=== PATIENT | female | born 1955 | race American Indian/Alaskan Native ===

== ENCOUNTER 2021-12-20 07:46 | Emergency (ER) | payer BC, OTHER ==
[2021-12-20 08:06] VITALS: BP 132/80; PULSE 75
[2021-12-20] MEDS ORDERED: Acetaminophen/oxyCODONE 325-5 MG Tab PO ONE (08:10)
== END 2021-12-20 10:07 | disposition home or self-care (01) ==
LOC: DL.ED 07:46
DX: S42.354A Nondisplaced comminuted fracture of shaft of humerus, right arm, initial encounter for closed fracture (principal); Z88.8 Allergy status to other drugs, medicaments and biological substances; Z79.899 Other long term (current) drug therapy; W10.2XXA Fall (on)(from) incline, initial encounter
CPT/HCPCS: 73020-RT; 73060-RT; 99283; A9270-GY

== ENCOUNTER 2022-05-11 08:51 | Day surgery (SDC) | payer BC, OTHER ==
[2022-05-11] MEDS ORDERED: Sodium Chloride 0.9% 10 ML Syringe IV ONE (08:52)
[2022-05-11] MEDS ORDERED: Dexamethasone 4 MG/ML SDV IV ONE (08:52)
[2022-05-11] MEDS ORDERED: Midazolam 1 MG/ML 2 ML SDV IV ONE (08:52)
[2022-05-11] MEDS ORDERED: Sodium Chloride 0.9% 10 ML Syringe FLUSH PRN (09:00)
[2022-05-11] MEDS ORDERED: Moxifloxacin 0.5% Ophth Soln 3 ML Bottle EYELF ONE (09:00)
[2022-05-11] MEDS ORDERED: Tropicamide 1% Ophth Soln 15 ML Bottle EYELF ONE (09:00)
[2022-05-11] MEDS ORDERED: Proparacaine 0.5% Ophth Soln 15 ML Bottle EYELF ONE (09:00)
[2022-05-11] MEDS ORDERED: Acetaminophen/Codeine 300-30 MG Tab PO PRN (09:00)
[2022-05-11] MEDS ORDERED: Povidone-Iodine 5% Sterile Ophth Soln 30 ML Bottle EYELF ONE ×2 (09:00→09:53)
[2022-05-11] MEDS ORDERED: Tobramycin 0.3% Ophth Drops 5 ML Bottle EYELF SCH (09:00)
[2022-05-11] MEDS ORDERED: Phenylephrine 10% Ophth Soln 5 ML Bot EYELF ONE (09:00)
[2022-05-11] MEDS ORDERED: Ondansetron 4 MG/2 ML SDV IVPUSH PRN (09:00)
[2022-05-11] MEDS ORDERED: Timolol Maleate 0.5% Ophth Soln 5 ML Bottle EYELF ONE (09:00)
[2022-05-11] MEDS ORDERED: Acetaminophen 325 MG Tab PO PRN (09:00)
[2022-05-11] MEDS ORDERED: Cataract Ophth Solution EYELF ONE (09:00)
[2022-05-11 09:27] VITALS: BP 126/74; PULSE 71
[2022-05-11] MEDS ORDERED: Tetracaine HCl/PF 0.5% 4 ML Bottle EYELF ONE (09:53)
[2022-05-11] MEDS ORDERED: Diclofenac Sodium 0.1% Ophth Soln 5 ML Bottle EYELF ONE (09:53)
[2022-05-11] MEDS ORDERED: Apraclonidine 0.5% Ophth Soln 5 ML Bot EYELF ONE (09:53)
[2022-05-11] MEDS ORDERED: Dexamethasone/Neomycin/Polymyxin B Ophth Oint 3.5 GM Tube EYELF ONE (09:54)
[2022-05-11] MEDS ORDERED: Lidocaine 1% 30 ML SDV ONE (09:54)
[2022-05-11] MEDS ORDERED: Vancomycin 500 MG SDV EYELF ONE (09:55)
[2022-05-11] MEDS ORDERED: Chondroitin Sulfate/Hyaluronate Sodium Ophth Inj 0.5 ML Syringe IOCULAR ONE (09:55)
[2022-05-11] MEDS ORDERED: Balanced Salt Solution Ophth Irrig 500 ML Bottle IOCULAR ONE (09:55)
== END 2022-05-11 11:03 | disposition home or self-care (01) ==
LOC: DL.SDS 08:51
PROVIDERS: ATTEND Ophthalmology
DX: E11.36 Type 2 diabetes mellitus with diabetic cataract (principal); H25.812 Combined forms of age-related cataract, left eye; E03.9 Hypothyroidism, unspecified; M25.561 Pain in right knee; M25.562 Pain in left knee; G89.29 Other chronic pain; Z79.1 Long term (current) use of non-steroidal anti-inflammatories (NSAID); M81.0 Age-related osteoporosis without current pathological fracture; E55.9 Vitamin D deficiency, unspecified; Z79.899 Other long term (current) drug therapy; Z85.3 Personal history of malignant neoplasm of breast; Z87.891 Personal history of nicotine dependence; Z98.890 Other specified postprocedural states; Z79.890 Hormone replacement therapy; Z88.6 Allergy status to analgesic agent
CPT/HCPCS: 00142; 66984; A9270; J1100; J2250; J3370; J3490; V2632

== ENCOUNTER 2022-05-25 08:31 | Day surgery (SDC) | payer BC, OTHER ==
[~2022-05-25 08:31] MED LIST: Acetaminophen 325 MG Tab PO PRN; Acetaminophen/Codeine 300-30 MG Tab PO PRN; Cataract Ophth Solution EYERT ONE; Moxifloxacin 0.5% Ophth Soln 3 ML Bottle EYERT ONE; Ondansetron 4 MG/2 ML SDV IVPUSH PRN; Phenylephrine 10% Ophth Soln 5 ML Bot EYERT ONE; Povidone-Iodine 5% Sterile Ophth Soln 30 ML Bottle EYERT ONE; Proparacaine 0.5% Ophth Soln 15 ML Bottle EYERT ONE; Sodium Chloride 0.9% 10 ML Syringe FLUSH PRN; Timolol Maleate 0.5% Ophth Soln 5 ML Bottle EYERT ONE; Tobramycin 0.3% Ophth Drops 5 ML Bottle EYERT SCH; Tropicamide 1% Ophth Soln 15 ML Bottle EYERT ONE
[2022-05-25] MEDS ORDERED: Sodium Chloride 0.9% 10 ML Syringe IV ONE (08:32)
[2022-05-25] MEDS ORDERED: Dexamethasone 4 MG/ML SDV IV ONE (08:32)
[2022-05-25] MEDS ORDERED: Midazolam 1 MG/ML 2 ML SDV IV ONE (08:32)
[2022-05-25 08:48] VITALS: BP 121/78; PULSE 76
[2022-05-25] MEDS ORDERED: Tetracaine HCl/PF 0.5% 4 ML Bottle EYERT ONE (09:31)
[2022-05-25] MEDS ORDERED: Apraclonidine 0.5% Ophth Soln 5 ML Bot EYERT ONE (09:32)
[2022-05-25] MEDS ORDERED: Povidone-Iodine 5% Sterile Ophth Soln 30 ML Bottle EYERT ONE (09:32)
[2022-05-25] MEDS ORDERED: Diclofenac Sodium 0.1% Ophth Soln 5 ML Bottle EYERT ONE (09:32)
[2022-05-25] MEDS ORDERED: Lidocaine 1% 5 ML VIAL ONE (09:33)
[2022-05-25] MEDS ORDERED: Dexamethasone/Neomycin/Polymyxin B Ophth Oint 3.5 GM Tube EYERT ONE (09:33)
[2022-05-25] MEDS ORDERED: Balanced Salt Solution Ophth Irrig 500 ML Bottle IOCULAR ONE (09:34)
[2022-05-25] MEDS ORDERED: Chondroitin Sulfate/Hyaluronate Sodium Ophth Inj 0.75 ML Syringe EYERT ONE (09:35)
[2022-05-25] MEDS ORDERED: Vancomycin 500 MG SDV EYERT ONE (09:35)
== END 2022-05-25 10:42 | disposition home or self-care (01) ==
LOC: DL.SDS 08:31
PROVIDERS: ATTEND Ophthalmology
DX: H25.811 Combined forms of age-related cataract, right eye (principal); R73.03 Prediabetes; E03.9 Hypothyroidism, unspecified; G89.29 Other chronic pain; M25.561 Pain in right knee; E55.9 Vitamin D deficiency, unspecified; M81.0 Age-related osteoporosis without current pathological fracture; S42.301A Unspecified fracture of shaft of humerus, right arm, initial encounter for closed fracture; Z01.812 Encounter for preprocedural laboratory examination; Z20.822 Contact with and (suspected) exposure to COVID-19; Z79.890 Hormone replacement therapy; Z87.891 Personal history of nicotine dependence; Z90.49 Acquired absence of other specified parts of digestive tract; Z98.890 Other specified postprocedural states; Z79.899 Other long term (current) drug therapy
CPT/HCPCS: 00142; 66982; 87635; A9270; J1100; J2250; J3370; J3490; V2632; U0002